=== PATIENT | male | born 1970 | race Caucasian/White ===

== ENCOUNTER → 2020-10-12 | Outpatient (REF) ==
--- NOTE | 2020-10-12 15:41 | REPPI ---
INDICATION: DDD DISABILITY DIAGNOSIS DETERMINATION COMPARISON: None. TECHNIQUE: AP, lateral, bilateral oblique views. FINDINGS: Mild lateral swelling cannot be excluded and should be correlated clinically. No acute fracture or dislocation. Ankle mortise intact. IMPRESSION: Questionable mild swelling. Age-related changes without acute fracture or dislocation. <Electronically signed by Senthil La > 10/12/20 [id number]
== END ==
LOC: M PLAIMG 15:13
PROVIDERS: ATTEND Internal Medicine
DX: M25.571 Pain in right ankle and joints of right foot (principal)